=== PATIENT | female | born 1995 | race African-American/Black ===

== ENCOUNTER 2020-02-13 10:06 | Emergency (ER) | payer OTHER ==
[2020-02-13 10:19] VITALS: BP 122/91; PULSE 91; TEMP 98.7; BMI 27.4
--- NOTE | 2020-02-13 10:43 | PDOC ---
History of Present Illness - General Chief Complaint: Toothache Stated Complaint: TOOTHACHE Time Seen by Provider: 02/13/20 10:25 History Source: Patient - History of Present Illness Timing/Duration: 1 week Past History - Medical History Allergies/Adverse Reactions: Allergies Allergy/AdvReac Type Severity Reaction Status Date / Time No Known Allergies Allergy Verified 02/13/20 10:14 Home Medications: Ambulatory Orders Ibuprofen [Motrin -] 600 mg PO QID #28 tablet 02/13/20 COPD: No - Psycho-Social/Smoking History Smoking History: Never smoked Have you smoked in the past 12 months: No - Substance Abuse Hx (Audit-C & DAST Scrn) How often the patient has a drink containing alcohol: Never Score: In Men: 4 or > Positive; In Women: 3 or > Positive: 0 Screen Result (Pos requires Nsg. Audit-10AR): Negative In the last yr the pt used illegal drug/Rx for NonMed reason: No Score: Yes response is considered Positive: 0 Screen Result (Positive result requires Nsg. DAST-10): Negative Review of Systems - Review of Systems Constitutional: No: Chills, Fever *Physical Exam - Vital Signs Last Vital Signs Temp Pulse Resp BP Pulse Ox 98.7 F 91 H 16 122/91 100 02/13/20 10:15 02/13/20 10:15 02/13/20 10:15 02/13/20 10:15 02/13/20 10:15 - Physical Exam General Appearance: Yes: Appropriately Dressed. No: Apparent Distress HEENT: positive: Normal Voice, Other (dental sharon to R upper 1st molar, no sig ttp, no discharge, no facial swelling) Neck: positive: Supple Respiratory/Chest: negative: Respiratory Distress Integumentary: positive: Dry, Warm Neurologic: positive: Fully Oriented, Alert, Normal Mood/Affect Medical Decision Making - Medical Decision Making 02/13/20 10:44 24 yo F, no sig hx, here w/ toothache x 1 week. No facial swelling, f/c. No trauma. Has not been to the dentist in years per pt see exam Toothache w/ dental sharon on exam No e/o infection Declined pain meds in ED Dc w/ pain control and dental referral Discharge - Discharge Information Problems reviewed: Yes Clinical Impression/Diagnosis: Toothache, Dental caries Condition: Good Disposition: HOME - Additional Discharge Information Prescriptions: Ibuprofen [Motrin -] 600 mg PO QID #28 tablet - Follow up/Referral - Patient Discharge Instructions Patient Printed Discharge Instructions: DI for Dental Pain, DI for Tooth Decay Additional Instructions: Take motrin as needed and follow up in urgent care dental clinic today: [facility] Address: [address] [place], [place] [address] [address] Opens 4PM - Post Discharge Activity
== END 2020-02-13 10:50 | disposition home or self-care (01) ==
LOC: JERFT 10:06
DX: K08.9 Disorder of teeth and supporting structures, unspecified (principal); K02.9 Dental caries, unspecified
CPT/HCPCS: 99282-25

== ENCOUNTER 2021-06-27 18:00 | Emergency (ER) | payer OTHER ==
[2021-06-27 18:13] VITALS: BP 138/90; PULSE 85; TEMP 97.4; BMI 28.5
[2021-06-27] MEDS ORDERED: ACETAMINOPHEN/CAFFEINE/BUTALBITAL 1 TAB PO ONE (19:19)
[2021-06-27] MEDS ORDERED: METOCLOPRAMIDE HCL 10 MG TABLET (FP) PO ONE ×2 (19:19→19:37)
[2021-06-27] MEDS ORDERED: ACETAMINOPHEN/CAFFEINE/BUTALBITAL 1 TAB ONE (19:37)
[2021-06-27 20:17] LABS: BASO % 0.7 % (0-2.0); EOS % 4.4 % (0-4.5); HEMATOCRIT 27.2 % (32.4-45.2); HEMOGLOBIN 8.9 GM/dL (10.7-15.3); LYMPH % 42.1 % (8-40); MCH 23.1 pg (25.7-33.7); MCHC 32.8 g/dl (32.0-36.0); MEAN CELL VOLUME 70.4 fl (80-96); MEAN PLT VOLUME 8.3 fl (7.5-11.1); MONO % 7.8 % (3.8-10.2); PLATELET COUNT 393 10^3/uL (134-434); RBC 3.86 M/mm3 (3.60-5.2); RDW 17.8 % (11.6-15.6); WHITE BLOOD COUNT 5.2 K/mm3 (4.0-10.0)
[2021-06-27 20:21] LABS: CALCIUM 9.1 mg/dL (8.5-10.1)
[2021-06-27 20:22] LABS: ALBUMIN 3.8 g/dl (3.4-5.0); BLOOD UREA NITROGEN 15.2 mg/dL (7-18)
[2021-06-27 20:25] LABS: CREATININE 0.9 mg/dL (0.55-1.3)
[2021-06-27 20:26] LABS: BILIRUBIN,TOTAL 0.2 mg/dL (0.2-1); TOT PROT 8.2 g/dl (6.4-8.2)
== END 2021-06-27 21:51 | disposition home or self-care (01) ==
LOC: JERFT 18:00 → JER 18:00
DX: D64.9 Anemia, unspecified (principal)
CPT/HCPCS: 36415; 70450-TC; 80053; 84439; 84443; 85025; 93005; 93010; 99285-25

== ENCOUNTER 2021-12-14 06:37 | Emergency (ER) | payer OTHER ==
[2021-12-14 07:09] VITALS: BP 125/79; PULSE 109; TEMP 99.8; BMI 27.8
[2021-12-14] MEDS ORDERED: ACETAMINOPHEN 500 MG TABLET (FP) PO ONE (07:11)
[2021-12-14] MEDS ORDERED: ACETAMINOPHEN 500 MG TABLET (FP) ONE (08:02)
== END 2021-12-14 08:50 | disposition home or self-care (01) ==
LOC: JER 06:37
DX: J09.X2 Influenza due to identified novel influenza A virus with other respiratory manifestations (principal)
CPT/HCPCS: 71046-TC-FY; 87804; 93005; 93010; 99285-25; C9803-CS; U0003; U0005

== ENCOUNTER 2022-03-27 13:17 | Emergency (ER) | payer OTHER ==
[2022-03-27 13:34] VITALS: BP 139/96; PULSE 82; RESP 18; TEMP 97.4; BMI 27.4
[2022-03-27] MEDS ORDERED: ACETAMINOPHEN 500 MG TABLET (FP) PO ONE (15:28)
[2022-03-27] MEDS ORDERED: ACETAMINOPHEN 500 MG TABLET (FP) ONE (15:29)
[2022-03-27 15:51] LABS: BASO % 0.6 % (0-2.0); EOS % 4.3 % (0-4.5); HEMATOCRIT 30.4 % (32.4-45.2); HEMOGLOBIN 10.1 GM/dL (10.7-15.3); LYMPH % 42.7 % (8-40); MCH 25.7 pg (25.7-33.7); MCHC 33.4 g/dl (32.0-36.0); MEAN CELL VOLUME 77.2 fl (80-96); MEAN PLT VOLUME 8.1 fl (7.5-11.1); MONO % 7.1 % (3.8-10.2); NEUT % 45.3 % (42.8-82.8); PLATELET COUNT 292 10^3/uL (134-434); RBC 3.94 M/mm3 (3.60-5.2); RDW 17.8 % (11.6-15.6); WHITE BLOOD COUNT 4.1 K/mm3 (4.0-10.0)
[2022-03-27 16:14] LABS: CALCIUM 8.8 mg/dL (8.5-10.1)
[2022-03-27 16:15] LABS: BLOOD UREA NITROGEN 13.6 mg/dL (7-18)
[2022-03-27 16:17] LABS: CREATININE 0.9 mg/dL (0.55-1.3)
[2022-03-27 16:19] LABS: BILIRUBIN,TOTAL 0.3 mg/dL (0.2-1); TOT PROT 8.4 g/dl (6.4-8.2)
== END 2022-03-27 16:59 | disposition home or self-care (01) ==
LOC: JERFT 13:17
DX: S09.90XA Unspecified injury of head, initial encounter (principal); W01.0XXA Fall on same level from slipping, tripping and stumbling without subsequent striking against object, initial encounter
CPT/HCPCS: 36415; 70450-TC; 80053; 85025; 93005; 93010; 99285-25